=== PATIENT | female | born 1980 | race African-American/Black ===

== ENCOUNTER 2023-09-25 06:06 | Emergency (ER) | payer MEDICAID ==
[~2023-09-25] VITALS: Ht 160 cm; Wt 113.6 kg
[2023-09-25] MEDS: HYDROcodone-ACET 10/325MG TAB PO ONE (06:56)
[2023-09-25] MEDS: cloNIDine HCL 0.1 MG TAB PO ONE (06:57)
[2023-09-25 07:40] VITALS: PULSE 69; O2SAT 100
[2023-09-25] MEDS ORDERED: HYDR-4902 PO (10:36)
[2023-09-25 12:00] VITALS: BP 152/70; PULSE 68; RESP 18; O2SAT 97
== END 2023-09-25 12:41 | disposition home or self-care (01) ==
LOC: ER 06:06
DX: M25.561 Pain in right knee (principal); I10 Essential (primary) hypertension; I25.2 Old myocardial infarction; F12.10 Cannabis abuse, uncomplicated; Z85.41 Personal history of malignant neoplasm of cervix uteri; Z88.8 Allergy status to other drugs, medicaments and biological substances; Z91.041 Radiographic dye allergy status; Z90.710 Acquired absence of both cervix and uterus
CPT/HCPCS: 36415; 84550; 93971